=== PATIENT | male | born 1940 | race Hispanic/Latino ===

== ENCOUNTER 2020-12-11 11:20 | Emergency (ER) | payer MEDICARE, OTHER, SELFPAY ==
[2020-12-11 11:46] VITALS: BP 128/85; PULSE 98; RESP 18; TEMP 36.7; O2SAT 95
--- NOTE | 2020-12-11 11:57 | ED.URI ---
HPI - URI/Sore Throat General Chief Complaint: Upper Respiratory Infection Stated Complaint: Basic Cough Time Seen by Provider: 12/11/20 12:05 Source: patient and RN notes reviewed Mode of arrival: ambulatory Limitations: no limitations History of Present Illness HPI Narrative: 80 year old male who presents to [facility] with complaints of developing dry hacking cough over the weekend. Patient states that he was outside racking leaves on Friday and then he developed this dry hacking cough over the weekend. Patient states that his states that he kept her awake all night due to his cough. Patient states that he has not experienced any fevers, chills or sweats, denies any shortness of breath, denies any sore throat or any ear pain, states some nasal drainage with feelings of sinus congestion. Patient states that he has not taken any OTC medication for his symptoms. MD elicited complaint: cough, rhinorrhea and nasal congestion Onset (ago): day(s) (2) Consistency: intermittent Description of mucous: clear Able to tolerate fluids by mouth: Yes Exacerbating factors: exertion Relieving factors: nothing Context: other (working out in yard on Friday) Associated symptoms: rhinorrhea, nasal congestion and cough Treatments prior to arrival: none Related Data Home Medications Medication Instructions Recorded Confirmed apixaban [Eliquis] 5 mg PO DAILY 12/11/20 12/11/20 metoprolol succinate 25 mg PO DAILY 12/11/20 12/11/20 omeprazole 20 mg PO DAILY 12/11/20 12/11/20 Allergies Allergy/AdvReac Type Severity Reaction Status Date / Time No Known Allergies Allergy Verified 12/11/20 11:57 Review of Systems Review of Systems: Narrative: CONSTITUTIONAL: Denies fever, chills, or sweats. EYES: Denies visual changes, redness, or discharge. ENT: positive rhinorrhea, congestion,no sore throat, or otalgia. CARDIOVASCULAR: Denies chest pain, palpitations, or edema. RESPIRATORY: Positive dry hacking cough denies dyspnea. GASTROINTESTINAL: Denies abdominal pain, nausea, vomiting, or diarrhea. GENITOURINARY: Denies dysuria or hematuria. SKIN: Denies rash or itching. MUSCULOSKELETAL: Denies back pain, joint pain, or myalgia. NEUROLOGIC: Denies headache, numbness, or weakness. PSYCHIATRIC: Denies anxiety or depression. All systems reviewed & are unremarkable except as noted in HPI and below PMFSH Past Medical History Medical History (Updated 12/11/20 @ 12:20 by Prema Salas NP) Atrial fibrillation SON (obstructive sleep apnea) Prostate cancer Surgical History Surgical History (Updated 12/11/20 @ 12:41 by Prema Salas NP) History of appendectomy History of arthroscopy of both shoulders History of carpal tunnel surgery of left wrist History of carpal tunnel surgery of right wrist History of prostatectomy Hx of inguinal herniorrhaphy Family History Family History (Updated 12/11/20 @ 12:41 by Prema Salas NP) Father Diabetes mellitus Heart disease Social History Social History (Updated 12/11/20 @ 12:42 by Prema Salas NP) Smoking packs per day: 0.5 Smoking cigarettes per day: 10.0 Years smoked: 8 Smoking pack-years: 4.00 Smoking status: Former smoker Tobacco type: cigarettes Second hand tobacco smoke exposure: No Alcohol intake: former Substance use: never Living arrangements: with family Gender identity (if verbalized by the patient): Male Comments At time of signature, agree with nursing past medical, surgical, social and family history. There is no relevant family history pertinent to the presenting complaint Exam Narrative: Exam Narrative: GENERAL: Well-appearing, well-nourished, and in no acute distress. HEAD: Normocephalic, atraumatic. EYES: PERRLA and EOMI. ENT: Nares red, with clear rhinorrhea no epistaxis. Mucous membranes moist.TM's normal with good light reflex, no redness of ear canals, throat light red with no tonsil enlargement, uvula midline, post nasal drainage
== END 2020-12-11 12:32 | disposition home or self-care (01) ==
PROVIDERS: Emergency Provider Registered Nurse
DX: R05 Cough (principal); J06.9 Acute upper respiratory infection, unspecified; Z87.891 Personal history of nicotine dependence; I48.91 Unspecified atrial fibrillation; G47.33 Obstructive sleep apnea (adult) (pediatric); Z85.46 Personal history of malignant neoplasm of prostate; Z90.79 Acquired absence of other genital organ(s)
CPT/HCPCS: 99213; G0463